=== PATIENT | male | born 1995 | race Caucasian/White ===

== ENCOUNTER → 2020-01-07 | Outpatient (CLI) | payer MEDICARE ==
--- NOTE | 2020-01-07 12:17 | Diagnostic Imaging Report ---
INDICATION: Wheezing. COMPARISON: None available. TECHNIQUE: Frontal and lateral radiographs of the chest dated 01/07/2020. FINDINGS: Postsurgical changes of a median sternotomy are identified. Additional densities are identified overlying the right aspect of the heart, likely related to a Closure device. The superior aspect of the mediastinum is narrowed with the heart demonstrating a slight globular configuration. No pulmonary vascular congestion. The lungs are clear of focal pulmonary opacity. No pleural effusion. No pneumothorax. No acute osseous abnormality. Mild narrowing of the inferior aspect of the trachea is suggested. IMPRESSION: Mild narrowing of the inferior aspect of the trachea is suggested, of uncertain etiology. This could relate to scarring and stenosis. Alternatively, secretions or mass lesion would be an additional consideration. Comparison to prior imaging would be beneficial. Postsurgical changes associated with the chest with abnormal configuration of the heart and mediastinum. Findings are felt to relate to underlying congenital heart disease. Given appearance of the mediastinum, this could relate to transposition of the great arteries. Recommend clinical correlation and correlation with surgical history. Comparison to prior imaging would also be beneficial. Dictated by: Dictated on workstation # [id number]
== END ==
LOC: RAD FS 11:34
PROVIDERS: ATTEND Family Medicine
DX: R06.2 Wheezing (principal); Z98.890 Other specified postprocedural states
CPT/HCPCS: 71046

== ENCOUNTER 2020-06-24 20:22 | Emergency (ER) | payer MEDICARE ==
[~2020-06-24] VITALS: Ht 170.2 cm; Wt 59.0 kg
[~2020-06-24 20:22] MED LIST: ASPI-999 PO; CALC-823 PO; CEFD300C3 PO; CLC600T PO; DIGO125T3 PO; LISI-556 PO
[2020-06-24] MEDS ORDERED: ONDA4TAB11 PO (20:54)
--- NOTE | 2020-06-24 20:54 | ED Abdominal Pain ---
General Chief Complaint: Abdominal/GI Problems Stated Complaint: VOMITING,DIARRHEA Nursing Triage Note: PT AMBULATE TO ROOM FS02 WITH C/O N/V/D, ABD PAIN, AND HEADACHE STARTING THIS MORNING. PT DENIES TAKING ANYTHING FOR PAIN OR NAUSEA. Sepsis Screen: No Definite Risk Source of Information: Patient History of Present Illness Date Seen by Provider: Jun 24, 2020 Time Seen by Provider: 08:48 Initial Comments 24-year-old male presents with onset of nausea vomiting diarrhea this morning. Denies any significant abdominal pain, just "cramps all over". Denies any known exposure to anyone with stomach flu, however he states people at his work have had coughs and cold symptoms. Denies any chest pain, palpitations, cough or shortness of air. Has had very little to eat or drink today, but when he did try to eat a bowl of cereal he vomited immediately afterwards. Allergies and Home Medications Allergies Coded Allergies: Pertussis Vaccines (Verified Allergy, Unknown, 03/14/20) azithromycin (Verified Allergy, Unknown, 03/14/20) Home Medications Aspirin 81 Mg Tab.chew, 81 MG PO DAILY, (Reported) Calcium Carbonate 600 Mg Tablet, 600 MG PO DAILY, (Reported) Cefdinir 300 Mg Capsule, 300 MG PO BID Prescribed by: FELIX ALVAREZ on 03/16/20 1500 Digoxin 125 Mcg Tablet, 125 MCG PO DAILY, (Reported) LAST FILLED 11-25-2019 #3030 DAY SUPPLY Lisinopril 5 Mg Tablet, 5 MG PO DAILY, (Reported) LAST FILLED 01-07-2020 #30/30 DAY SUPPLY Ondansetron 4 Mg Tab.rapdis, 4 MG PO TID Prescribed by: SHAHANA DE LA ROSA on 06/24/202053 Patient Home Medication List Home Medication List Reviewed: Yes Review of Systems Review of Systems Constitutional: see HPI; No dizziness, No fever; malaise; No weakness EENTM: No Symptoms Reported Respiratory: No Symptoms Reported; Denies Cough, Denies Shortness of Air Cardiovascular: Denies Chest Pain, Denies Edema, Denies Palpitations Gastrointestinal: Denies Abdominal Pain, Denies Constipated; Diarrhea, Nausea, Poor Appetite, Poor Fluid Intake, Vomiting Genitourinary: No Symptoms Reported Musculoskeletal: no symptoms reported Skin: no symptoms reported Past Gviviaq-Bwcbnp-Vxohme Hx Past Med/Social Hx: Reviewed Nursing Past Med/Soc Hx Patient Social History Alcohol Use: Denies Use Recreational Drug Use: No Smoking Status: Never a Smoker 2nd Hand Smoke Exposure: No Recent Foreign Travel: No Contact w/Someone Who Travel: No Recent Infectious Disease Expo: No Recent Hopitalizations: No Physical Abuse: No Sexual Abuse: No Mistreated: No Fear: No Past Medical History Surgeries: Yes Abdominal, Open Heart Surgery, Tracheostomy Respiratory: No Cardiac: Yes (Congenital heart disease) Congenital Heart Disease Neurological: No Genitourinary: No Gastrointestinal: Yes (feeding tube when younger) Musculoskeletal: No Endocrine: No HEENT: No Cancer: No Psychosocial: Yes Anxiety Integumentary: No Blood Disorders: No Family Medical History Asthma, Heart Disease, CVA, Stroke Physical Exam Vital Signs Vital Signs - First Documented 06/24/20 20:38 Temp 36.3 Pulse 112 Resp 17 B/P (MAP) 128/77 (94) O2 Delivery Room Air Capillary Refill : Less Than 3 Seconds Height/Weight/BMI Height: '" Weight: lbs. oz. kg; 20.00 BMI Method: General Appearance: WD/WN, no apparent distress HEENT: PERRL/EOMI, normal ENT inspection Neck: non-tender, supple Respiratory: chest non-tender, lungs clear, normal breath sounds Cardiovascular: no edema, no gallop, no JVD, tachycardia (120) Gastrointestinal: non tender, soft, no organomegaly, abnormal bowel sounds (hyperactive); No mass Back: normal inspection, no CVA tenderness Progress/Results/Core Measures Results/Orders Lab Results Laboratory Tests Test 06/24/20 20:53 Range/Units White Blood Count 10.7 4.3-11.0 10^3/uL Red Blood Count 5.79 4.35-5.85 10^6/uL Hemoglobin 17.5 13.3-17.7 G/DL Hematocrit 52 40-54 % Mean Corpuscular Volume 89 80-99 FL Mean Corpuscular Hemoglobin 30 25-34 PG Mean Corpuscular Hemoglobin Concent 34 32-36 G/DL Red Cell Distribution Width 13.9 10.0-14.5 % Platelet Count 192 130-400 10^3/uL Mean Platelet Volume 11.0 H 7.4-10.4 FL Immature Granulocyte % (Auto) 1 % Neutrophils (%) (Auto) 86 H 42-75 % Lymphocytes (%) (Auto) 7 L 12-44 % Monocytes (%) (Auto) 6 0-12 % Eosinophils (%) (Auto) 0 0-10 % Basophils (%) (Auto) 1 0-10 % Neutrophils # (Auto) 9.1 H 1.8-7.8 X 10^3 Lymphocytes # (Auto) 0.7 L 1.0-4.0 X 10^3 Monocytes # (Auto) 0.7 0.0-1.0 X 10^3 Eosinophils # (Auto) 0.0 0.0-0.3 10^3/uL Basophils # (Auto) 0.1 0.0-0.1 10^3/uL Immature Granulocyte # (Auto) 0.1 0.0-0.1 10^3/uL Neutrophils % (Manual) 76 % Lymphocytes % (Manual) 5 % Monocytes % (Manual) 6 % Eosinophils % (Manual) 1 % Basophils % (Manual) 0 % Band Neutrophils 11 % Atypical Lymphocytes 1 % Platelet Estimate NORMAL Blood Morphology Comment NORMAL Sodium Level 139 135-145 MMOL/L Potassium Level 3.9 3.6-5.0 MMOL/L Chloride Level 101 98-107 MMOL/L Carbon Dioxide Level 22 21-32 MMOL/L Anion Gap 16 H 5-14 MMOL/L Blood Urea Nitrogen 7 7-18 MG/DL Creatinine 0.60 0.60-1.30 MG/DL Estimat Glomerular Filtration Rate > 60 BUN/Creatinine Ratio 12 Glucose Level 105 70-105 MG/DL Calcium Level 10.1 8.5-10.1 MG/DL My Orders Orders - SHAHANA DE LA ROSA DO Ed Iv/Invasive Line Start (06/24/20 20:49) Cbc With Automated Diff (06/24/20 20:49) Basic Metabolic Panel (06/24/20 20:49) Ns Iv 1000 Ml (Sodium Chloride 0.9%) (06/24/20 21:00) Ondansetron Injection (Zofran Injectio (06/24/20 21:00) Manual Differential (06/24/20 20:53) Medications Given in ED Current Medications Medications Dose Ordered Sig/Christen Route Start Time Stop Time Status Last Admin Dose Admin Ondansetron HCl 4 mg ONCE ONCE IVP 06/24/20 21:00 06/24/20 21:01 DC 06/24/20 20:58 4 MG Vital Signs/I&O 06/24/20 20:38 Temp 36.3 Pulse 112 Resp 17 B/P (MAP) 128/77 (94) O2 Delivery Room Air 2 Blood Pressure Mean: 94 Departure Impression Primary Impression: Gastroenteritis Disposition: 01 HOME, SELF-CARE Condition: Improved Departure-Patient Inst. Decision time for Depature: 21:49 Referrals: SELF,HA FERRELL (PCP/Family) Primary Care Physician Patient Instructions: Viral Gastroenteritis, Adult (DC) Scripts Ondansetron (Ondansetron Odt) 4 Mg Tab.rapdis 4 MG PO TID for Nausea, #10 TAB Prov: SHAHANA DE LA ROSA DO 06/24/20 SHAHANA DE LA ROSA DO Jun 24, 2020 20:54
[2020-06-24] MEDS ORDERED: ONDANSETRON 4 MG/2 ML (SDV) Z0FRAN IVP ONE (21:00)
[2020-06-24] MEDS ORDERED: NS IV 1000 ML 1,000 ML IV SCH (21:00)
[2020-06-24 21:14] LABS: BASOPHILS % (AUTO) 1 % (0-10); EOSINOPHILS % (AUTO) 0 % (0-10); HEMATOCRIT 52 % (40-54); HEMOGLOBIN 17.5 G/DL (13.3-17.7); LYMPHOCYTES % (AUTO) 7 % (12-44); MEAN CORPUSCULAR HEMOGLOBIN 30 PG (25-34); MEAN CORPUSCULAR HGB CONC 34 G/DL (32-36); MEAN CORPUSCULAR VOLUME 89 FL (80-99); MONOCYTES % (AUTO) 6 % (0-12); NEUTROPHILS % (AUTO) 86 % (42-75); PLATELET COUNT 192 10^3/uL (130-400); WHITE BLOOD COUNT 10.7 10^3/uL (4.3-11.0)
[2020-06-24 21:15] LABS: BASOPHILS # (AUTO) 0.1 10^3/uL (0.0-0.1); LYMPHOCYTES # (AUTO) 0.7 X 10^3 (1.0-4.0); MONOCYTES # (AUTO) 0.7 X 10^3 (0.0-1.0); NEUTROPHILS # (AUTO) 9.1 X 10^3 (1.8-7.8)
[2020-06-24 21:31] LABS: BAND NEUTROPHILS 11 %; BASOPHILS % (MANUAL) 0 %; EOSINOPHILS % (MANUAL) 1 %; LYMPHOCYTES % (MANUAL) 5 %; MONOCYTES % (MANUAL) 6 %; NEUTROPHILS % (MANUAL) 76 %
[2020-06-24 21:32] LABS: ATYPICAL LYMPHOCYTES 1 %; PLATELET ESTIMATE NORMAL; RBC MORPH NORMAL
[2020-06-24 21:33] LABS: BUN/CREATININE RATIO 12; CALCIUM 10.1 MG/DL (8.5-10.1); CARBON DIOXIDE 22 MMOL/L (21-32); CHLORIDE 101 MMOL/L (98-107); GFR ESTIMATED > 60; GLUCOSE 105 MG/DL (70-105); POTASSIUM 3.9 MMOL/L (3.6-5.0); SODIUM 139 MMOL/L (135-145)
[2020-06-24 22:12] VITALS: BP 119/64
== END 2020-06-24 22:12 | disposition home or self-care (01) ==
LOC: EDUNIT# 20:22 → ER FS 20:23
DX: K52.9 Noninfective gastroenteritis and colitis, unspecified (principal); Z82.49 Family history of ischemic heart disease and other diseases of the circulatory system; Z88.7 Allergy status to serum and vaccine; Z88.1 Allergy status to other antibiotic agents; Z79.82 Long term (current) use of aspirin
CPT/HCPCS: 36415; 80048; 85007; 85027

== ENCOUNTER 2021-07-08 02:18 | Emergency (ER) | payer MEDICARE ==
[~2021-07-08] VITALS: Ht 170 cm; Wt 59.0 kg
[~2021-07-08 02:18] MED LIST changes: +CALC600T91 PO; -CLC600T PO; -LISI-556 PO; +LISI5TAB20 PO; +ONDA4TAB11 PO
--- OUTSIDE RECORDS SUMMARY | 2021-07-08 02:24 | XMS REPORT | Clinical Summary ---
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 If you d o not see the information that you expected, contact Release of Information in [facility] [employer] Information Management department at [phone] for further assistan ce in locating additional records.[facility] Allergies Not on File Medications Not on file Active Problems Not on file Social History Date Tobacco Use Types Packs/Day Years Used Never Assessed Sex Assigned at Date Recorded Not on file Last Filed Vital Signs Not on file Plan of Treatment Health Maintenance Due Date Last Done Comments HIV SCREENING 2008 DTAP/TDAP VACCINES (1 - 2011 Tdap) HEPATITIS C SCREENING 2011 PHYSICAL (COMPREHENSIVE) 2011 EXAM INFLUENZA VACCINE 02/28/2021 HPV VACCINES Aged Out No longer eligible based on patient's age to complete this topic Results Not on filefrom Last 3 Months Advance Directives 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
[2021-07-08] MEDS ORDERED: ONDANSETRON 4 MG/2 ML (SDV) Z0FRAN IV ONE (02:45)
[2021-07-08] MEDS ORDERED: NS IV 1000 ML 1,000 ML IV SCH (02:45)
--- NOTE | 2021-07-08 02:50 | ED General ---
General Stated Complaint: SORE THROAT/VOMITING Source of Information: Patient, Old Records History of Present Illness Date Seen by Provider: Jul 08, 2021 Time Seen by Provider: 02:22 Initial Comments 25-year-old male presenting with complaints of sore throat, cough, nausea, vomiting, fever to 102 Fahrenheit. He states his symptoms all started last night. He was working at [employer] when his symptoms came on. He has been around his aunt who had similar symptoms. He had continued nausea and sore throat so when he could not rest at home because of the symptoms he came to the emergency department. He denies feeling dizzy or lightheaded. He has no chest pain. He reports mild epigastric tenderness with palpation. He denies any diarrhea or change in his bowels. He denies any pain or burning with urination. Timing/Duration: 4-6 Hours Severity: Moderate Associated Systoms: No Chest Pain; Cough; No Diaphoresis; Fever/Chills, Headaches, Malaise, Nausea/Vomiting; No Rash, No Seizure, No Shortness of Air, No Syncope, No Weakness Allergies and Home Medications Allergies Coded Allergies: Pertussis Vaccines (Verified Allergy, Unknown, 03/14/20) azithromycin (Verified Allergy, Unknown, 03/14/20) Patient Home Medication List Home Medication List Reviewed: Yes Aspirin (Aspirin) 81 Mg Tab.chew, 81 MG PO DAILY, (Reported) Entered as Reported by: OZZY JONES on 03/15/20918 Calcium Carbonate (Calcium) 600 Mg Tablet, 600 MG PO DAILY, (Reported) Entered as Reported by: BRANDEE LEE on 03/16/20 1155 Digoxin (Digoxin) 125 Mcg Tablet, 125 MCG PO DAILY, (Reported) Entered as Reported by: OZZY JONES on 03/15/20918 Lisinopril (Lisinopril) 5 Mg Tablet, 5 MG PO DAILY, (Reported) Entered as Reported by: OZZY JONES on 03/15/20918 Ondansetron (Ondansetron Odt) 4 Mg Tab.rapdis, 4 MG PO Q6H PRN for NAUSEA/VOMITING Prescribed by: MATT CRAMER on 07/08/21 0451 Discontinued Medications Cefdinir (Cefdinir) 300 Mg Capsule, 300 MG PO BID Prescribed by: FELIX ALVAREZ on 03/16/20 1500 Ondansetron (Ondansetron Odt) 4 Mg Tab.rapdis, 4 MG PO TID Prescribed by: SHAHANA DE LA ROSA on 06/24/202053 Review of Systems Review of Systems Constitutional: chills; No diaphoresis, No dizziness; fever, malaise EENTM: nose congestion, throat pain (Sore throat) Respiratory: cough, short of breath; No stridor, No wheezing Cardiovascular: No chest pain Gastrointestinal: abdominal pain (Epigastric); No constipation, No diarrhea, No hematemesis, No heartburn, No melena; nausea, vomiting Genitourinary: No decreased output, No dysuria Musculoskeletal: no symptoms reported Skin: No rash Psychiatric/Neurological: See HPI Past Ejskrwq-Maoyjd-Ydjcda Hx Patient Social History Tobacco Use?: No Use of E-Cig and/or Vaping dev: No Substance use?: No Alcohol Use?: No Past Medical History Surgeries: Yes Abdominal, Open Heart Surgery, Tracheostomy Respiratory: No Cardiac: Yes (Congenital heart disease) Congenital Heart Disease Neurological: No Genitourinary: No Gastrointestinal: Yes (feeding tube when younger) Musculoskeletal: No Endocrine: No HEENT: No Cancer: No Psychosocial: Yes Anxiety Integumentary: No Blood Disorders: No Family Medical History Asthma, Heart Disease, CVA, Stroke Physical Exam Vital Signs Vital Signs - First Documented Capillary Refill : Height, Weight, BMI Height: '" Weight: lbs. oz. kg; 20.00 BMI Method: General Appearance: No Apparent Distress, Thin, Other (Disheveled appearance) HEENT: PERRL/EOMI, Pharynx Normal Neck: Full Range of Motion, Normal Inspection, Non Tender, Supple Respiratory: Chest Non Tender, Lungs Clear, Normal Breath Sounds, No Accessory Muscle Use, No Respiratory Distress Cardiovascular: Normal Peripheral Pulses, Tachycardia Gastrointestinal: Normal Bowel Sounds, No Pulsatile Mass, Soft; No Abnormal Bowel Sounds, No Guarding, No Rebound; Tenderness (Mild epigastric tenderness to palpation) Rectal: Deferred Back: No CVA Tenderness Extremity: Normal Capillary Refill, Normal Inspection, No Pedal Edema Neurologic/Psychiatric: Alert, Oriented x3, structurer II-XII Norm as Tested Skin: Normal Color, Warm/Dry Focused Exam Lactate Level 07/08/21 03:15: Lactic Acid Level 1.26 Lactic Acid Level Laboratory Tests Test 07/08/21 03:15 Lactic Acid Level 1.26 MMOL/L (0.50-2.00) Progress/Results/Core Measures Suspected Sepsis SIRS Temperature: Pulse: Respiratory Rate: Laboratory Tests 07/08/21 03:15: White Blood Count 9.5 Blood Pressure / Mean: 07/08/21 03:15: Lactic Acid Level 1.26 Laboratory Tests 07/08/21 03:15: Creatinine 0.81, INR Comment 1.2, Platelet Count 160, Total Bilirubin 2.9H Results/Orders Lab Results Laboratory Tests Test 07/08/21 03:15 07/08/21 03:20 07/08/21 03:25 07/08/21 03:56 Range/Units White Blood Count 9.5 4.3-11.0 10^3/uL Red Blood Count 5.65 H 4.30-5.52 10^6/uL Hemoglobin 17.3 13.3-17.7 g/dL Hematocrit 50 40-54 % Mean Corpuscular Volume 88 80-99 fL Mean Corpuscular Hemoglobin 31 25-34 pg Mean Corpuscular Hemoglobin Concent 35 32-36 g/dL Red Cell Distribution Width 13.9 10.0-14.5 % Platelet Count 160 130-400 10^3/uL Mean Platelet Volume 11.5 9.0-12.2 fL Immature Granulocyte % (Auto) % Neutrophils (%) (Auto) 85 H 42-75 % Lymphocytes (%) (Auto) 5 L 12-44 % Monocytes (%) (Auto) 9 0-12 % Eosinophils (%) (Auto) 0 0-10 % Basophils (%) (Auto) 1 0-10 % Neutrophils # (Auto) 8.1 H 1.8-7.8 X 10^3 Lymphocytes # (Auto) 0.5 L 1.0-4.0 X 10^3 Monocytes # (Auto) 0.9 0.0-1.0 X 10^3 Eosinophils # (Auto) 0.0 0.0-0.3 10^3/uL Basophils # (Auto) 0.1 0.0-0.1 10^3/uL Neutrophils % (Manual) 82 % Lymphocytes % (Manual) 4 % Monocytes % (Manual) 7 % Eosinophils % (Manual) 0 % Basophils % (Manual) 1 % Band Neutrophils 6 % Platelet Estimate NORMAL Blood Morphology Comment NORMAL Prothrombin Time 15.4 H 12.2-14.7 SEC INR Comment 1.2 0.8-1.4 Activated Partial Thromboplast Time 32 24-35 SEC Sodium Level 137 135-145 MMOL/L Potassium Level 3.8 3.6-5.0 MMOL/L Chloride Level 102 98-107 MMOL/L Carbon Dioxide Level 21 21-32 MMOL/L Anion Gap 14 5-14 MMOL/L Blood Urea Nitrogen 8 7-18 MG/DL Creatinine 0.81 0.60-1.30 MG/DL Estimat Glomerular Filtration Rate 114 BUN/Creatinine Ratio 10 Glucose Level 106 H 70-105 MG/DL Lactic Acid Level 1.26 0.50-2.00 MMOL/L Calcium Level 9.6 8.5-10.1 MG/DL Corrected Calcium 8.5-10.1 MG/DL Total Bilirubin 2.9 H 0.1-1.0 MG/DL Aspartate Amino Transf (AST/SGOT) 25 5-34 U/L Alanine Aminotransferase (ALT/SGPT) 23 0-55 U/L Alkaline Phosphatase 83 40-136 U/L Troponin I < 0.30 <0.30 NG/ML C-Reactive Protein 0.56 H <0.50 MG/DL Total Protein 7.7 6.4-8.2 GM/DL Albumin 4.8 H 3.2-4.5 GM/DL Lipase 12 8-78 U/L Influenza Type A Antigen NEGATIVE NEGATIVE Influenza Type B Antigen NEGATIVE NEGATIVE Group A Streptococcus Screen NEGATIVE NEGATIVE Test 07/08/21 04:30 Range/Units Urine Color DARK YELLOW Urine Clarity CLEAR Urine pH 8.5 5-9 Urine Specific [place] 1.015 L 1.016-1.022 Urine Protein NEGATIVE NEGATIVE Urine Glucose (UA) NEGATIVE NEGATIVE Urine Ketones 1+ H NEGATIVE Urine Nitrite NEGATIVE NEGATIVE Urine Bilirubin 1+ H NEGATIVE Urine Urobilinogen 4.0 < = 1.0 MG/DL Urine Leukocyte Esterase NEGATIVE NEGATIVE Urine RBC (Auto) NEGATIVE NEGATIVE Urine RBC 2-5 H /HPF Urine WBC RARE /HPF Urine Squamous Epithelial Cells RARE /HPF Urine Crystals NONE /LPF Urine Bacteria NEGATIVE /HPF Urine Casts NONE /LPF Urine Mucus SMALL H /LPF Urine Culture Indicated NO My Orders Orders - MATT CRAMER MD Ed Iv/Invasive Line Start (07/08/21 02:40) Cbc With Automated Diff (07/08/21 02:40) Comprehensive Metabolic Panel (07/08/21 02:40) Crp Fs (07/08/21 02:40) Troponin I Fs (07/08/21 02:40) Protime With Inr (07/08/21 02:40) Partial Thromboplastin Time (07/08/21 02:40) Ns Iv 1000 Ml (Sodium Chloride 0.9%) (07/08/21 02:45) Ondansetron Injection (Zofran Injectio (07/08/21 02:45) Blood Culture (07/08/21 02:40) Rapid Strep A Screen (07/08/21 02:40) Influenza A & B Antigens (07/08/21 02:40) Covid 19 Inhouse Test (07/08/21 02:40) Chest 1 View Ap/Pa Only (07/08/21 02:40) Lipase (07/08/21 02:40) Ua Culture If Indicated (07/08/21 02:40) Lactic Acid Analyzer (07/08/21 02:40) Dexamethasone Injection (Decadron Inje (07/08/21 02:40) Manual Differential (07/08/21 03:15) Medications Given in ED Current Medications Medications Dose Ordered Sig/Christen Route Start Time Stop Time Status Last Admin Dose Admin Ondansetron HCl 4 mg ONCE ONCE IV 07/08/21 02:45 07/08/21 02:46 DC 07/08/21 03:22 4 MG Vital Signs/I&O 07/08/21 07/08/21 02:30 02:30 Temp 37.5 37.5 Pulse 112 112 Resp 14 14 B/P (MAP) 130/71 (90) 130/71 Pulse Ox 96 94 O2 Delivery Room Air Room Air Capillary Refill : Progress Note #1: Progress Note Obtain basic labs as well as blood cultures since he reports fever of 102 Fahrenheit. Rapid strep swab for his complaint of sore throat. Influenza and Covid swab to check for viral infection. Chest x-ray to evaluate for his cough and look for signs of pneumonia, pleural effusion, heart failure, pneumothorax. Urinalysis to evaluate hydration. Give IV fluids for hydration. Zofran for nausea and vomiting. Decadron to help with sore throat and cough. Differential diagnosis includes viral syndrome, strep throat, influenza, Covid, pneumonia, sepsis Progress Note #2: Progress Note CBC did not demonstrate an elevated white blood cell count. His rapid strep test was negative. The chest x-ray did not demonstrate any acute infiltrate or effusion. Awaiting other tests. Continue with IV fluids for hydration and continue with monitoring of the patient. Progress Note #3: Progress Note Influenza swab was negative. The chemistry did not demonstrate any acute significant abnormality. His lactic acid was not elevated. Will discharge home with symptomatic care and await Covid result. Counseled to isolate and quarantine until results are back. If he is positive he should stay in isolation and quarantine for 10 days until his symptoms are resolved. Diagnostic Imaging Diagonstic Imaging: Xray Plain Films/CT/US/NM/MRI: chest Comments NAME: AUDIE REINA [facility] REC#: [id number] PT STATUS: REG ER : 1995 PHYSICIAN: MATT CRAMER MD ADMIT DATE: 07/08/21/ER FS Draft Date of Exam:07/08/21 CHEST 1 VIEW AP/PA ONLY INDICATION: Cough and fever Portable AP view of the chest is obtained with comparison made to the study of 03/14/2020. Surgical findings in the mediastinum again identified. There is mild cardiomegaly with narrow superior mediastinum. No pneumothorax, consolidation or pleural fluid is identified. IMPRESSION: Stable appearance of the chest without acute abnormality detected. Dictated on workstation # [id number] Dict: 07/08/21 0411 Trans: 07/08/21 0413 [facility] [id number] Interpreted by: SULEMA MIRELES MD Electronically signed by: Reviewed: Reviewed by Me Departure Impression Primary Impression: Upper respiratory infection with cough and congestion Additional Impression: Person under investigation for COVID-19 Disposition: 01 HOME, SELF-CARE Condition: Stable Departure-Patient Inst. Decision time for Depature: 04:49 Referrals: HA CARY MD (PCP/Family) Primary Care Physician Patient Instructions: COVID-19 After You Have Been Vaccinated, Upper Respiratory Infection ED, Cough, Adult ED Add. Discharge Instructions: Stay well-hydrated and drink plenty of fluids. Use a humidifier at the bedside to help with congestion and cough. Quarantine and self isolate until the results of the Covid swab are known. This could take 24 hours or more to get back. If the test result is positive then you need to remain in quarantine for 10 days. Follow-up through your regular provider for continued concerns. Scripts Ondansetron (Ondansetron Odt) 4 Mg Tab.rapdis 4 MG PO Q6H PRN for NAUSEA/VOMITING for 3 Days, #12 TAB 0 Refills Prov: MATT CRAMER MD 07/08/21 Work/School Note: Work Release Form Date Seen in the Emergency Department: Jul 08, 2021 Return to Work: Jul 19, 2021 Restrictions: Return-No Fever (24hrs) Other Restrictions Listed Below: Return to work if Covid positive. If negative, when no fever 24 hrs MATT CRAMER MD Jul 08, 2021 02:50
[2021-07-08 04:13] LABS: INR 1.2 (0.8-1.4); PROTHROMBIN TIME PATIENT 15.4 SEC (12.2-14.7)
--- NOTE | 2021-07-08 04:14 | Diagnostic Imaging Report ---
INDICATION: Cough and fever Portable AP view of the chest is obtained with comparison made to the study of 03/14/2020. Surgical findings in the mediastinum again identified. There is mild cardiomegaly with narrow superior mediastinum. No pneumothorax, consolidation or pleural fluid is identified. IMPRESSION: Stable appearance of the chest without acute abnormality detected. Dictated by: Dictated on workstation # [id number]
[2021-07-08 04:17] LABS: BASOPHILS % (AUTO) 1 % (0-10); EOSINOPHILS % (AUTO) 0 % (0-10); HEMATOCRIT 50 % (40-54); HEMOGLOBIN 17.3 g/dL (13.3-17.7); LYMPHOCYTES # (AUTO) 0.5 X 10^3 (1.0-4.0); LYMPHOCYTES % (AUTO) 5 % (12-44); MEAN CORPUSCULAR HEMOGLOBIN 31 pg (25-34); MEAN CORPUSCULAR HGB CONC 35 g/dL (32-36); MEAN CORPUSCULAR VOLUME 88 fL (80-99); MEAN PLATELET VOLUME 11.5 fL (9.0-12.2); MONOCYTES # (AUTO) 0.9 X 10^3 (0.0-1.0); MONOCYTES % (AUTO) 9 % (0-12); NEUTROPHILS # (AUTO) 8.1 X 10^3 (1.8-7.8); NEUTROPHILS % (AUTO) 85 % (42-75); PLATELET COUNT 160 10^3/uL (130-400); WHITE BLOOD COUNT 9.5 10^3/uL (4.3-11.0)
[2021-07-08 04:18] LABS: BASOPHILS # (AUTO) 0.1 10^3/uL (0.0-0.1)
[2021-07-08 04:19] LABS: CARBON DIOXIDE 21 MMOL/L (21-32); CHLORIDE 102 MMOL/L (98-107); POTASSIUM 3.8 MMOL/L (3.6-5.0); SODIUM 137 MMOL/L (135-145)
[2021-07-08 04:20] LABS: ALANINE AMINOTRANSFERASE 23 U/L (0-55); ALBUMIN 4.8 GM/DL (3.2-4.5); ALKALINE PHOSPHATASE 83 U/L (40-136); BILIRUBIN,TOTAL 2.9 MG/DL (0.1-1.0); BUN/CREATININE RATIO 10; CALCIUM 9.6 MG/DL (8.5-10.1); CREATININE SERUM 0.81 MG/DL (0.60-1.30); GFR ESTIMATED 114; GLUCOSE 106 MG/DL (70-105); TOTAL PROTEIN 7.7 GM/DL (6.4-8.2)
[2021-07-08 04:26] LABS: BAND NEUTROPHILS 6 %; BASOPHILS % (MANUAL) 1 %; EOSINOPHILS % (MANUAL) 0 %; LYMPHOCYTES % (MANUAL) 4 %; MONOCYTES % (MANUAL) 7 %; NEUTROPHILS % (MANUAL) 82 %
[2021-07-08 04:27] LABS: PLATELET ESTIMATE NORMAL; RBC MORPH NORMAL
[2021-07-08 04:34] LABS: CLARITY,URINE CLEAR; GLUCOSE, URINE (UA) NEGATIVE (NEGATIVE); KETONES,URINE 1+ (NEGATIVE); LEUKOCYTE ESTERASE ,URINE NEGATIVE (NEGATIVE); NITRITE,URINE NEGATIVE (NEGATIVE); PH,URINE 8.5 (5-9); PROTEIN,URINE NEGATIVE (NEGATIVE)
[2021-07-08 04:42] LABS: BACTERIA,URINE NEGATIVE /HPF; BILIRUBIN,URINE 1+ (NEGATIVE); COLOR,URINE DARK YELLOW; WBC,URINE RARE /HPF
[2021-07-08 04:43] LABS: SQUAMOUS EPITHELIAL CELL,UR RARE /HPF
[2021-07-08] MEDS ORDERED: ONDA4TAB11 PO (04:51)
[2021-07-08 05:00] VITALS: BP 116/56
== END 2021-07-08 05:00 | disposition home or self-care (01) ==
LOC: EDUNIT# 02:18 → ER FS 02:21
DX: J06.9 Acute upper respiratory infection, unspecified (principal); R09.81 Nasal congestion; R00.0 Tachycardia, unspecified; Z20.822 Contact with and (suspected) exposure to COVID-19; Z79.82 Long term (current) use of aspirin
CPT/HCPCS: 36415; 71045; 80053; 81000; 83605; 83690; 84484; 85007; 85027; 85610; 85730; 86141; 87040; 87430; 87636; 87804

== ENCOUNTER 2022-07-01 05:29 | Emergency (ER) | payer MEDICARE ==
[~2022-07-01] VITALS: Ht 170.1 cm; Wt 57.7 kg
--- NOTE | 2022-07-01 05:33 | ED Cough/URI ---
General Stated Complaint: COUGH, CONGESTION History of Present Illness Date Seen by Provider: Jul 01, 2022 Time Seen by Provider: 05:33 Initial Comments 26-year-old male presents with a cough times about 5 days. [facility] was [facility] negative for influenza, strep and COVID. Patient has a history of 3 open heart surgeries and is a baby along with a trach. Patient reports she has been trying Tessalon Perles with a continues to have a cough and congestion. He does have a niece with similar illness. No reports of fevers, chills, vomiting or diarrhea. Allergies and Home Medications Allergies Coded Allergies: Pertussis Vaccines (Verified Allergy, Unknown, 03/14/20) azithromycin (Verified Allergy, Unknown, 03/14/20) Patient Home Medication List Home Medication List Reviewed: Yes Aspirin (Aspirin) 81 Mg Tab.chew, 81 MG PO DAILY, (Reported) Entered as Reported by: OZZY JONES on 03/15/20918 Last Action: Last Taken Edited Benzonatate (Benzonatate) 100 Mg Capsule, 100 MG PO TID PRN for COUGH, (Reported) Entered as Reported by: JOSE D ALDRIDGE on 07/01/22 0635 Last Action: New Order Calcium Carbonate (Calcium) 600 Mg Tablet, 600 MG PO DAILY, (Reported) Entered as Reported by: BRANDEE LEE on 03/16/20 1155 Last Action: Last Taken Edited Digoxin (Digoxin) 125 Mcg Tablet, 125 MCG PO DAILY, (Reported) Entered as Reported by: OZZY JONES on 03/15/20918 Last Action: Last Taken Edited Lisinopril (Lisinopril) 5 Mg Tablet, 5 MG PO DAILY, (Reported) Entered as Reported by: OZZY JONES on 03/15/20918 Last Action: Last Taken Edited Discontinued Medications Ondansetron (Ondansetron Odt) 4 Mg Tab.rapdis, 4 MG PO Q6H PRN for NAUSEA/VOMITING Discontinued Reason: Referral/FU Appt-Addtl Prescribed by: MATT CRAMER on 07/08/21 0114 Last Action: Discontinued Review of Systems Review of Systems Constitutional: No chills, No fever; malaise Respiratory: cough; No wheezing Cardiovascular: No chest pain, No palpitations Gastrointestinal: No abdominal pain, No nausea, No vomiting Musculoskeletal: no symptoms reported Skin: no symptoms reported Psychiatric/Neurological: No Symptoms Reported Past Nkyjlwr-Qcvjjk-Labank Hx Past Medical History Surgeries: Yes Abdominal, Open Heart Surgery, Tracheostomy Respiratory: No Cardiac: Yes (Congenital heart disease) Congenital Heart Disease Neurological: No Genitourinary: No Gastrointestinal: Yes (feeding tube when younger) Musculoskeletal: No Endocrine: No HEENT: No Cancer: No Psychosocial: Yes Anxiety Integumentary: No Blood Disorders: No Family Medical History Asthma, Heart Disease, CVA, Stroke Physical Exam Vital Signs - First Documented 07/01/22 05:34 Temp 36.4 Pulse 94 Resp 20 B/P (MAP) 128/67 (87) Pulse Ox 96 O2 Delivery Room Air Capillary Refill : Height: '" Weight: lbs. oz. kg; 20.00 BMI Method: General Appearance: WD/WN, no apparent distress Neck: full range of motion, supple, normal inspection Respiratory: lungs clear, normal breath sounds, no respiratory distress, no accessory muscle use, other (Frequent cough) Cardiovascular: regular rate, rhythm, no edema Gastrointestinal: non tender, soft Neurologic/Psychiatric: alert, normal mood/affect, oriented x 3 Skin: normal color, warm/dry Progress/Results/Core Measures Suspected Sepsis SIRS Temperature: Pulse: Respiratory Rate: Laboratory Tests 07/01/22 05:50: White Blood Count 10.0 Blood Pressure / Mean: Laboratory Tests 07/01/22 05:50: Creatinine 0.66, Platelet Count 177, Total Bilirubin 1.3H Results/Orders Lab Results Laboratory Tests Test 07/01/22 05:50 Range/Units White Blood Count 10.0 4.3-11.0 10^3/uL Red Blood Count 5.09 4.30-5.52 10^6/uL Hemoglobin 15.6 13.3-17.7 g/dL Hematocrit 45 40-54 % Mean Corpuscular Volume 88 80-99 fL Mean Corpuscular Hemoglobin 31 25-34 pg Mean Corpuscular Hemoglobin Concent 35 32-36 g/dL Red Cell Distribution Width 13.6 10.0-14.5 % Platelet Count 177 130-400 10^3/uL Mean Platelet Volume 11.3 9.0-12.2 fL Immature Granulocyte % (Auto) 0 % Neutrophils (%) (Auto) 74 42-75 % Lymphocytes (%) (Auto) 13 12-44 % Monocytes (%) (Auto) 10 0-12 % Eosinophils (%) (Auto) 3 0-10 % Basophils (%) (Auto) 1 0-10 % Neutrophils # (Auto) 7.5 1.8-7.8 10^3/uL Lymphocytes # (Auto) 1.3 1.0-4.0 10^3/uL Monocytes # (Auto) 1.0 0.0-1.0 10^3/uL Eosinophils # (Auto) 0.3 0.0-0.3 10^3/uL Basophils # (Auto) 0.1 0.0-0.1 10^3/uL Immature Granulocyte # (Auto) 0.0 0.0-0.1 10^3/uL Sodium Level 143 135-145 MMOL/L Potassium Level 3.3 L 3.6-5.0 MMOL/L Chloride Level 103 98-107 MMOL/L Carbon Dioxide Level 23 21-32 MMOL/L Anion Gap 17 H 5-14 MMOL/L Blood Urea Nitrogen 6 L 7-18 MG/DL Creatinine 0.66 0.60-1.30 MG/DL Estimat Glomerular Filtration Rate 131 BUN/Creatinine Ratio 9 Glucose Level 96 70-105 MG/DL Calcium Level 9.2 8.5-10.1 MG/DL Corrected Calcium 8.8 8.5-10.1 MG/DL Total Bilirubin 1.3 H 0.1-1.0 MG/DL Aspartate Amino Transf (AST/SGOT) 19 5-34 U/L Alanine Aminotransferase (ALT/SGPT) 13 0-55 U/L Alkaline Phosphatase 90 40-136 U/L C-Reactive Protein 2.23 H <0.50 MG/DL Total Protein 7.4 6.4-8.2 GM/DL Albumin 4.5 3.2-4.5 GM/DL My Orders Orders - MARTIN,TAYE L DO Cbc With Automated Diff (07/01/22 05:36) Comprehensive Metabolic Panel (07/01/22 05:36) Procalcitonin (Pct) (07/01/22 05:36) Crp Fs (07/01/22 05:36) Chest Pa/Lat (2 View) (07/01/22 05:36) Vital Signs/I&O 07/01/22 05:34 Temp 36.4 Pulse 94 Resp 20 B/P (MAP) 128/67 (87) Pulse Ox 96 O2 Delivery Room Air Capillary Refill : Progress Note : Progress Note Patient with negative chest x-ray. Patient with a viral upper respiratory infection. Discussed supportive care. Patient stable and discharged home Diagnostic Imaging Diagonstic Imaging: Xray Plain Films/CT/US/NM/MRI: chest Comments Date of Exam:07/01/22 CHEST PA/LAT (2 VIEW) CHEST PA/LAT (2 VIEW) Indication: Cough Comparison: 07/08/2021 Findings: No pulmonary mass or consolidation. No pleural effusion or pneumothorax. Stable widened configuration of the cardiac silhouette, likely due to congenital heart disease, especially in the setting of remote sternotomy. Impression: No acute cardiopulmonary process. Reviewed: Reviewed by Me, Reviewed/Discussed Departure Impression Primary Impression: Viral upper respiratory tract infection with cough Disposition: 01 HOME, SELF-CARE Condition: Stable Departure-Patient Inst. Referrals: SELF,HA FERRELL (PCP/Family) Primary Care Physician Patient Instructions: Cough, Adult ED Add. Discharge Instructions: You may try honey in addition to your Tessalon Perles for your cough. Tylenol or ibuprofen as needed for fever and chills. Follow-up with your primary care provider if symptoms are not better in 10 to 14 days. Work/School Note: Work Release Form Date Seen in the Emergency Department: Jul 01, 2022 Return to Work: Jul 03, 2022 Restrictions: Return-No Fever (24hrs) TAYE MARTIN DO Jul 01, 2022 05:33
[2022-07-01 05:58] LABS: BASOPHILS # (AUTO) 0.1 10^3/uL (0.0-0.1); BASOPHILS % (AUTO) 1 % (0-10); EOSINOPHILS # (AUTO) 0.3 10^3/uL (0.0-0.3); EOSINOPHILS % (AUTO) 3 % (0-10); HEMATOCRIT 45 % (40-54); HEMOGLOBIN 15.6 g/dL (13.3-17.7); LYMPHOCYTES # (AUTO) 1.3 10^3/uL (1.0-4.0); LYMPHOCYTES % (AUTO) 13 % (12-44); MEAN CORPUSCULAR HEMOGLOBIN 31 pg (25-34); MEAN CORPUSCULAR HGB CONC 35 g/dL (32-36); MEAN CORPUSCULAR VOLUME 88 fL (80-99); MEAN PLATELET VOLUME 11.3 fL (9.0-12.2); MONOCYTES % (AUTO) 10 % (0-12); NEUTROPHILS # (AUTO) 7.5 10^3/uL (1.8-7.8); NEUTROPHILS % (AUTO) 74 % (42-75); PLATELET COUNT 177 10^3/uL (130-400)
--- NOTE | 2022-07-01 06:07 | Diagnostic Imaging Report ---
CHEST PA/LAT (2 VIEW) Indication: Cough Comparison: 07/08/2021 Findings: No pulmonary mass or consolidation. No pleural effusion or pneumothorax. Stable widened configuration of the cardiac silhouette, likely due to congenital heart disease, especially in the setting of remote sternotomy. Impression: No acute cardiopulmonary process. Dictated by: Dictated on workstation # [id number]
[2022-07-01 06:21] LABS: ALBUMIN 4.5 GM/DL (3.2-4.5); BILIRUBIN,TOTAL 1.3 MG/DL (0.1-1.0); CALCIUM 9.2 MG/DL (8.5-10.1); CREATININE SERUM 0.66 MG/DL (0.60-1.30); POTASSIUM 3.3 MMOL/L (3.6-5.0); TOTAL PROTEIN 7.4 GM/DL (6.4-8.2)
[2022-07-01] MEDS ORDERED: BENZ-36 PO (06:35)
[2022-07-01 06:55] VITALS: BP 124/60
== END 2022-07-01 06:51 | disposition home or self-care (01) ==
LOC: EDUNIT# 05:29 → ER FS 05:31
DX: J06.9 Acute upper respiratory infection, unspecified (principal)
CPT/HCPCS: 36415; 71046; 80053; 84145; 85025; 86141

== ENCOUNTER 2022-07-16 01:56 | Emergency (ER) | payer SELFPAY ==
[~2022-07-16 01:56] MED LIST changes: +BENZ-36 PO
[2022-07-16] MEDS ORDERED: ONDANSETRON 4 MG (ZOFRAN) ORAL DISSOLVE TAB PO STA (02:09)
[2022-07-16] MEDS ORDERED: BENZONATATE 100 MG (TESSALON) CAPSULE PO ONE (02:15)
--- NOTE | 2022-07-16 02:15 | ED Cough/URI ---
General Chief Complaint: Cough/Cold/Flu Symptoms Stated Complaint: DIZZINESS/N/V History of Present Illness Date Seen by Provider: Jul 16, 2022 Time Seen by Provider: 02:00 Initial Comments 26-year-old male presents with some nausea, vomiting, dizziness, cough, body aches, subjective fever and generalized malaise. Patient reports he has had a cough for about a week but the other symptoms just started over the last day or so. His and at recently tested positive for influenza and he has been around her a lot. She has the same symptoms. Allergies and Home Medications Allergies Coded Allergies: Pertussis Vaccines (Verified Allergy, Unknown, 03/14/20) azithromycin (Verified Allergy, Unknown, 03/14/20) Patient Home Medication List Home Medication List Reviewed: Yes Aspirin (Aspirin) 81 Mg Tab.chew, 81 MG PO DAILY, (Reported) Entered as Reported by: OZZY JONES on 03/15/20918 Benzonatate (Benzonatate) 100 Mg Capsule, 100 MG PO TID PRN for COUGH, (Reported) Entered as Reported by: JOSE D ALDRIDGE on 07/01/22 0635 Calcium Carbonate (Calcium) 600 Mg Tablet, 600 MG PO DAILY, (Reported) Entered as Reported by: BRANDEE LEE on 03/16/20 1155 Digoxin (Digoxin) 125 Mcg Tablet, 125 MCG PO DAILY, (Reported) Entered as Reported by: OZZY JONES on 03/15/20918 Lisinopril (Lisinopril) 5 Mg Tablet, 5 MG PO DAILY, (Reported) Entered as Reported by: OZZY JONES on 03/15/20918 Review of Systems Review of Systems Constitutional: chills, dizziness, fever Respiratory: cough; No short of breath Cardiovascular: No chest pain, No palpitations Gastrointestinal: No abdominal pain; nausea, vomiting Genitourinary: no symptoms reported Musculoskeletal: see HPI Skin: no symptoms reported Psychiatric/Neurological: No Symptoms Reported Past Wvvmxhr-Jwqvro-Oliygn Hx Patient Social History Tobacco Use?: No Use of E-Cig and/or Vaping dev: No Substance use?: No Immunizations Up To Date First/Initial COVID19 Vaccinat: unknown date Second COVID19 Vaccination Francisco: unknown date Past Medical History Surgery/Hospitalization HX: Congenital heart defect, open heart surgery repairs x3 Surgeries: Yes Abdominal, Open Heart Surgery, Tracheostomy Respiratory: No Cardiac: Yes (Congenital heart disease) Congenital Heart Disease Neurological: No Genitourinary: No Gastrointestinal: Yes (feeding tube when younger) Musculoskeletal: No Endocrine: No HEENT: No Cancer: No Psychosocial: Yes Anxiety Integumentary: No Blood Disorders: No Family Medical History Asthma, Heart Disease, CVA, Stroke Physical Exam Vital Signs - First Documented 07/16/22 02:03 Temp 38.4 Pulse 113 Resp 20 B/P (MAP) 99/73 (82) Pulse Ox 96 O2 Delivery Room Air Capillary Refill : Height: '" Weight: lbs. oz. kg; 19.00 BMI Method: General Appearance: WD/WN, no apparent distress HEENT: PERRL/EOMI Neck: full range of motion, supple Respiratory: lungs clear, normal breath sounds, no respiratory distress, no accessory muscle use Cardiovascular: normal peripheral pulses, regular rate, rhythm Gastrointestinal: non tender, soft Extremities: normal capillary refill Neurologic/Psychiatric: alert, normal mood/affect, oriented x 3 Skin: No rash, No tattoos/piercings Progress/Results/Core Measures Suspected Sepsis SIRS Temperature: Pulse: Respiratory Rate: Blood Pressure / Mean: Results/Orders My Orders Orders - TAYE MARTIN DO Ondansetron Oral Dissolve Tab (Zofran (07/16/22 02:09) Benzonatate Capsule (Tessalon Perles) (07/16/22 02:15) Medications Given in ED Current Medications Medications Dose Ordered Sig/Christen Route Start Time Stop Time Status Last Admin Dose Admin Benzonatate 100 mg ONCE ONCE PO 07/16/22 02:15 07/16/22 02:16 07/16/22 02:14 100 MG Vital Signs/I&O 07/16/22 02:03 Temp 38.4 Pulse 113 Resp 20 B/P (MAP) 99/73 (82) Pulse Ox 96 O2 Delivery Room Air Capillary Refill : Progress Note : Progress Note Patient with likely influenza since his aunt that he lives with and takes him to work has similar symptoms. Discussed with him that he is outside treatment window since his symptoms seem to start more than 48 hours ago. I will provide him Zofran to help with the nausea vomiting. He should drink plenty of fluids get plenty rest. He is stable and discharged Departure Impression Primary Impression: Influenza-like symptoms Disposition: HOME, SELF-CARE Condition: Stable Departure-Patient Inst. Referrals: SELF,HA FERRELL (PCP/Family) Primary Care Physician Patient Instructions: Flu, Adult (DC), Viral Syndrome (DC) Add. Discharge Instructions: Tylenol or ibuprofen as needed for fever or body aches, drink plenty of fluids All discharge instructions reviewed with patient and/or family. Voiced understanding. Scripts Ondansetron (Ondansetron Odt) 4 Mg Tab.rapdis 4 MG PO Q6H PRN for NAUSEA/VOMITING, #20 TAB 0 Refills Prov: TAYE MARTIN DO 07/16/22 Work/School Note: Work Release Form Date Seen in the Emergency Department: Jul 16, 2022 Return to Work: Jul 18, 2022 Restrictions: Return-No Fever (24hrs), Return-No Vomiting(24hrs) TAYE MARTIN DO Jul 16, 2022 02:15
[2022-07-16 02:16] VITALS: BP 99/73
[2022-07-16] MEDS ORDERED: ONDA4TAB11 PO (02:16)
== END 2022-07-16 02:17 | disposition home or self-care (01) ==
LOC: EDUNIT# 01:56 → ER FS 02:01
DX: R50.9 Fever, unspecified (principal); R05.9 Cough, unspecified; R11.2 Nausea with vomiting, unspecified; Z28.310 Unvaccinated for COVID-19
CPT/HCPCS: 99283

== ENCOUNTER 2023-04-07 12:47 | Emergency (ER) | payer SELFPAY ==
[~2023-04-07] VITALS: Ht 170.2 cm; Wt 59.0 kg
--- NOTE | 2023-04-07 12:52 | ED GI ---
General Stated Complaint: VOMITING Source of Information: Patient Exam Limitations: No Limitations History of Present Illness Date Seen by Provider: Apr 07, 2023 Time Seen by Provider: 12:43 Initial Comments 27-year-old male presents via EMS for nausea vomiting and diarrhea since yesterday. He was seen in urgent care and told he likely had a "stomach bug." He is not given any medications. They were fairly reluctant to give medications due to his home medications which include digoxin. He has diffuse abdominal cramping without any focal tenderness. No fevers. He has had chills. Emesis is nonbloody nonbilious. Diarrhea is without blood. All other systems reviewed and negative except documented per HPI. Voice recognition software was used to help create this chart Allergies and Home Medications Allergies Coded Allergies: Pertussis Vaccines (Verified Allergy, Unknown, 03/14/20) azithromycin (Verified Allergy, Unknown, 03/14/20) Patient Home Medication List Home Medication List Reviewed: Yes Aspirin (Aspirin) 81 Mg Tab.chew, 81 MG PO DAILY, (Reported) Entered as Reported by: OZZY JONES on 03/15/20918 Benzonatate (Benzonatate) 100 Mg Capsule, 100 MG PO TID PRN for COUGH, (Reported) Entered as Reported by: JOSE D ALDRIDGE on 07/01/22 0635 Calcium Carbonate (Calcium) 600 Mg Tablet, 600 MG PO DAILY, (Reported) Entered as Reported by: BRANDEE LEE on 03/16/20 1155 Digoxin (Digoxin) 125 Mcg Tablet, 125 MCG PO DAILY, (Reported) Entered as Reported by: OZZY JONES on 03/15/20918 Lisinopril (Lisinopril) 5 Mg Tablet, 5 MG PO DAILY, (Reported) Entered as Reported by: OZZY JONES on 03/15/20918 Ondansetron (Ondansetron Odt) 4 Mg Tab.rapdis, 4 MG PO Q6H PRN for NAUSEA/VOMITING Prescribed by: TAYE MARTIN on 07/16/22 0216 Review of Systems Review of Systems Constitutional: see HPI Past Wibwexy-Eowzwg-Rqeauh Hx Patient Social History Tobacco Use?: No Use of E-Cig and/or Vaping dev: No Substance use?: No Alcohol Use?: No Immunizations Up To Date First/Initial COVID19 Vaccinat: unknown date Second COVID19 Vaccination Francisco: unknown date Past Medical History Surgery/Hospitalization HX: Congenital heart defect, open heart surgery repairs x3 Surgeries: Yes Abdominal, Open Heart Surgery, Tracheostomy Respiratory: No Cardiac: Yes (Congenital heart disease) Congenital Heart Disease Neurological: No Genitourinary: No Gastrointestinal: Yes (feeding tube when younger) Musculoskeletal: No Endocrine: No HEENT: No Cancer: No Psychosocial: Yes Anxiety Integumentary: No Blood Disorders: No Family Medical History Asthma, Heart Disease, CVA, Stroke Physical Exam Vital Signs Vital Signs - First Documented 04/07/23 12:48 Temp 36.6 Pulse 87 Resp 24 B/P (MAP) 112/77 (89) O2 Delivery Room Air Capillary Refill : Height/Weight/BMI Height: '" Weight: lbs. oz. kg; 19.00 BMI Method: General Appearance: WD/WN, no apparent distress HEENT: normal ENT inspection, pharynx normal Neck: non-tender, supple Respiratory: chest non-tender, lungs clear, normal breath sounds, no res piratory distress, no accessory muscle use Cardiovascular: no murmur, tachycardia Gastrointestinal: normal bowel sounds, non tender, soft Extremities: non-tender, normal inspection, normal capillary refill Neurologic/Psychiatric: alert, oriented x 3 Skin: normal color, warm/dry, other (Scars anterior chest wall from previous open heart surgery) Progress/Results/Core Measures Results/Orders Lab Results Laboratory Tests Test 04/07/23 12:52 Range/Units White Blood Count 19.0 H 4.3-11.0 10^3/uL Red Blood Count 5.77 H 4.30-5.52 10^6/uL Hemoglobin 17.6 13.3-17.7 g/dL Hematocrit 52 40-54 % Mean Corpuscular Volume 90 80-99 fL Mean Corpuscular Hemoglobin 31 25-34 pg Mean Corpuscular Hemoglobin Concent 34 32-36 g/dL Red Cell Distribution Width 13.3 10.0-14.5 % Platelet Count 190 130-400 10^3/uL Mean Platelet Volume 11.4 9.0-12.2 fL Immature Granulocyte % (Auto) 1 % Neutrophils (%) (Auto) 90 H 42-75 % Lymphocytes (%) (Auto) 3 L 12-44 % Monocytes (%) (Auto) 6 0-12 % Eosinophils (%) (Auto) 0 0-10 % Basophils (%) (Auto) 0 0-10 % Neutrophils # (Auto) 17.2 H 1.8-7.8 10^3/uL Lymphocytes # (Auto) 0.6 L 1.0-4.0 10^3/uL Monocytes # (Auto) 1.1 H 0.0-1.0 10^3/uL Eosinophils # (Auto) 0.0 0.0-0.3 10^3/uL Basophils # (Auto) 0.1 0.0-0.1 10^3/uL Immature Granulocyte # (Auto) 0.1 0.0-0.1 10^3/uL Neutrophils % (Manual) 93 % Lymphocytes % (Manual) 3 % Monocytes % (Manual) 4 % Sodium Level 138 135-145 MMOL/L Potassium Level 4.0 3.6-5.0 MMOL/L Chloride Level 101 98-107 MMOL/L Carbon Dioxide Level 19 L 21-32 MMOL/L Anion Gap 18 H 5-14 MMOL/L Blood Urea Nitrogen 10 7-18 MG/DL Creatinine 0.68 0.60-1.30 MG/DL Estimat Glomerular Filtration Rate 129 BUN/Creatinine Ratio 15 Glucose Level 118 H 70-105 MG/DL Calcium Level 9.9 8.5-10.1 MG/DL My Orders Orders - MARQUITA SANDHU DO Cbc With Automated Diff (04/07/23 12:50) Basic Metabolic Panel (04/07/23 12:50) Ns Iv 1000 Ml (Ns Iv 1000 Ml) (04/07/23 13:00) Ondansetron Injection (Ondansetron Inj (04/07/23 13:00) Manual Differential (04/07/23 12:52) Ondansetron Injection (Ondansetron Inj (04/07/23 12:58) Digoxin (04/07/23 12:52) Medications Given in ED Current Medications Medications Dose Ordered Sig/Christen Route Start Time Stop Time Status Last Admin Dose Admin Ondansetron HCl 8 mg ONCE ONCE IVP 04/07/23 13:00 04/07/23 13:01 DC 04/07/23 13:01 8 MG Vital Signs/I&O 04/07/23 12:48 Temp 36.6 Pulse 87 Resp 24 B/P (MAP) 112/77 (89) O2 Delivery Room Air Departure Communication (Admissions) Patient is hemodynamically stable. He is given IV fluids and his heart rate is now in the 70s. Blood pressures are stable. No further vomiting here in the emergency department. Electrolytes are normal. He does have a leukocytosis likely suspect from the stress of vomiting alone. There is no evidence for focal bacterial infection. We discharged home in stable condition with supportive care. Impression Primary Impression: Nausea vomiting and diarrhea Disposition: 01 HOME, SELF-CARE Condition: Stable Departure-Patient Inst. Referrals: SELFHA MD (PCP/Family) Primary Care Physician Patient Instructions: Nausea and Vomiting, Adult ED Add. Discharge Instructions: You likely have a GI bug. Increase your fluids at home by taking small sips of fluids every 15 minutes. Use Zofran by dissolving under your tongue as needed for nausea. This will keep you from vomiting completely but should help with your symptoms. Return to the emergency department for any severe concerns. Follow-up with your primary doctor for any nonemergent needs. Scripts Ondansetron (Ondansetron Odt) 8 Mg Tab.rapdis 8 MG SL Q6H PRN for NAUSEA/VOMITING for 3 Days, #12 TAB Prov: MARQUITA SANDHU DO 04/07/23 MARQUITA SANDHU DO Apr 07, 2023 12:52
[2023-04-07 12:59] LABS: BASOPHILS # (AUTO) 0.1 10^3/uL (0.0-0.1); BASOPHILS % (AUTO) 0 % (0-10); EOSINOPHILS % (AUTO) 0 % (0-10); HEMATOCRIT 52 % (40-54); HEMOGLOBIN 17.6 g/dL (13.3-17.7); LYMPHOCYTES # (AUTO) 0.6 10^3/uL (1.0-4.0); LYMPHOCYTES % (AUTO) 3 % (12-44); MEAN CORPUSCULAR HEMOGLOBIN 31 pg (25-34); MEAN CORPUSCULAR HGB CONC 34 g/dL (32-36); MEAN CORPUSCULAR VOLUME 90 fL (80-99); MEAN PLATELET VOLUME 11.4 fL (9.0-12.2); MONOCYTES # (AUTO) 1.1 10^3/uL (0.0-1.0); MONOCYTES % (AUTO) 6 % (0-12); NEUTROPHILS # (AUTO) 17.2 10^3/uL (1.8-7.8); NEUTROPHILS % (AUTO) 90 % (42-75); PLATELET COUNT 190 10^3/uL (130-400)
[2023-04-07] MEDS: ONDANSETRON INJECTION 4 MG/2 ML (SDV) ONE (13:00)
[2023-04-07] MEDS ORDERED: ONDANSETRON INJECTION 4 MG/2 ML (SDV) IVP ONE (13:00)
[2023-04-07] MEDS ORDERED: NS IV 1000 ML 1,000 ML IV SCH (13:00)
[2023-04-07 13:14] LABS: LYMPHOCYTES % (MANUAL) 3 %; MONOCYTES % (MANUAL) 4 %; NEUTROPHILS % (MANUAL) 93 %
[2023-04-07 13:19] LABS: CALCIUM 9.9 MG/DL (8.5-10.1); CREATININE SERUM 0.68 MG/DL (0.60-1.30)
[2023-04-07] MEDS ORDERED: ONDA8TAB13 SL (13:29)
[2023-04-07 13:36] VITALS: BP 119/71
[2023-04-08] MEDS ORDERED: FAMO-119 PO (17:02)
== END 2023-04-07 13:36 | disposition home or self-care (01) ==
LOC: EDUNIT# 12:47 → ER FS 12:48
DX: R11.2 Nausea with vomiting, unspecified (principal); R19.7 Diarrhea, unspecified; Z28.310 Unvaccinated for COVID-19
CPT/HCPCS: 36415; 80048; 80162; 85007; 85027

== ENCOUNTER 2023-04-07 20:03 | Emergency (ER) | payer SELFPAY ==
[~2023-04-07] VITALS: Ht 170 cm; Wt 60.0 kg
[~2023-04-07 20:03] MED LIST changes: +ONDA8TAB13 SL
--- NOTE | 2023-04-07 20:15 | ED GI ---
General Chief Complaint: Abdominal/GI Problems Stated Complaint: N/V Nursing Triage Note: Patient presented to the ER via EMS secondary to nausea and vomiting. Patient was seen earlier today for same complaint as well as at urgent care. Source of Information: Patient Exam Limitations: No Limitations History of Present Illness Date Seen by Provider: Apr 07, 2023 Time Seen by Provider: 20:05 Initial Comments 27-year-old male presents again via EMS for nausea vomiting and loose stools. He was seen in urgent care earlier today and then by myself a couple of hours ag o for similar concerns. He had full lab work-up at that time which was remarkable only for leukocytosis. His electrolytes and kidney function were normal. His vital signs were normal at that time. He was prescribed Zofran but he states he did not pick it up because he fell asleep. He denies any fevers but has had chills. All other systems reviewed and negative except documented per HPI. Voice recognition software was used to help create this chart Allergies and Home Medications Allergies Coded Allergies: Pertussis Vaccines (Verified Allergy, Unknown, 03/14/20) azithromycin (Verified Allergy, Unknown, 03/14/20) Patient Home Medication List Home Medication List Reviewed: Yes Aspirin (Aspirin) 81 Mg Tab.chew, 81 MG PO DAILY, (Reported) Entered as Reported by: OZZY JONES on 03/15/20918 Benzonatate (Benzonatate) 100 Mg Capsule, 100 MG PO TID PRN for COUGH, (Reported) Entered as Reported by: JOSE D ALDRIDGE on 07/01/22 0635 Calcium Carbonate (Calcium) 600 Mg Tablet, 600 MG PO DAILY, (Reported) Entered as Reported by: BRANDEE LEE on 03/16/20 1155 Digoxin (Digoxin) 125 Mcg Tablet, 125 MCG PO DAILY, (Reported) Entered as Reported by: OZZY JONES on 03/15/20918 Lisinopril (Lisinopril) 5 Mg Tablet, 5 MG PO DAILY, (Reported) Entered as Reported by: OZZY JONES on 03/15/20918 Ondansetron (Ondansetron Odt) 4 Mg Tab.rapdis, 4 MG PO Q6H PRN for NAUSEA/VOMITING Prescribed by: TAYE MARTIN on 07/16/22 0216 Ondansetron (Ondansetron Odt) 8 Mg Tab.rapdis, 8 MG SL Q6H PRN for NAUSEA/VOMITING Prescribed by: MARQUITA SANDHU MD on 04/07/23 4311 Review of Systems Review of Systems Constitutional: see HPI Past Qlvnjwz-Hcadnt-Fiozrt Hx Patient Social History Tobacco Use?: No Use of E-Cig and/or Vaping dev: No Substance use?: No Alcohol Use?: No Immunizations Up To Date First/Initial COVID19 Vaccinat: unknown date Second COVID19 Vaccination [place]: unknown date Past Medical History Surgery/Hospitalization HX: Congenital heart defect, open heart surgery repairs x3 Surgeries: Yes Abdominal, Open Heart Surgery, Tracheostomy Respiratory: No Cardiac: Yes (Congenital heart disease) Congenital Heart Disease Neurological: No Genitourinary: No Gastrointestinal: Yes (feeding tube when younger) Musculoskeletal: No Endocrine: No HEENT: No Cancer: No Psychosocial: Yes Anxiety Integumentary: No Blood Disorders: No Family Medical History Asthma, Heart Disease, CVA, Stroke Physical Exam Vital Signs Vital Signs - First Documented 04/07/23 20:07 Pulse 104 Resp 22 B/P (MAP) 115/ Pulse Ox 100 O2 Delivery Room Air Capillary Refill : Less Than 3 Seconds Height/Weight/BMI Height: '" Weight: lbs. oz. kg; 20.00 BMI Method: General Appearance: WD/WN, no apparent distress HEENT: normal ENT inspection Respiratory: chest non-tender, lungs clear, normal breath sounds, no respiratory distress Cardiovascular: regular rate, rhythm, no murmur Gastrointestinal: normal bowel sounds, non tender, soft Extremities: normal range of motion, non-tender, normal capillary refill Neurologic/Psychiatric: alert, oriented x 3 Skin: normal color, warm/dry Progress/Results/Core Measures Results/Orders My Orders Orders - MARQUITA SANDHU DO Rx-Ondansetron Po (Rx-Zofran Po) (04/07/23 21:00) Vital Signs/I&O 04/07/23 20:07 Pulse 104 Resp 22 B/P (MAP) 115/ Pulse Ox 100 O2 Delivery Room Air Departure Communication (Admissions) Pt is hemodynamically stable with normal vital signs. He had full lab workup at his last visit only showing leukocytosis that i believe is likely reactive. He did not picker tender zofran that was prescribed to him. He was given IV zofran by EMS prior to arrival. He has no new symptoms. No indication for further lab workup. He is given the remainder of IVF provided by EMS and discharged in stable condition. He is upset about being discharged, requesting to be transferred to a different hospital. I informed him there is no indication to be transferred to a different hospital. He has had again no recurrence of vomiting here and has tolerated small sips of fluids without difficulty. I did send him home with a take-home Zofran as he did not picker tender his prescriptions earlier with the pharmacy was open. He asked for the ER supervisors number which is provided for him as he would like to call and complain. Advised him he was within his rights and her elementary secretary has provided him with the number. Impression Primary Impression: Nausea vomiting and diarrhea Disposition: HOME, SELF-CARE Condition: Stable Departure-Patient Inst. Referrals: SELF,HA FERRELL (PCP/Family) Primary Care Physician Patient Instructions: Nausea and Vomiting, Adult ED Add. Discharge Instructions: As discussed, you are likely to feel bad for the next 48 hours. It is expected that you will continue to have vomiting. Please picker tender the zofran and take it as needed for nausea. Drink katrin sips of fluids regularly to stay hydrated. Return to the ER for any severe concerns. Follow up with your primary doctor for any non emergent needs. All discharge instructions reviewed with patient and/or family. Voiced underst anding. MARQUITA SANDHU DO Apr 07, 2023 20:15
[2023-04-07] MEDS ORDERED: RX-ONDANSETRON 4 MG ODT (ZOFRAN) PPK #4 PO ONE (21:00)
[2023-04-07 21:05] VITALS: BP 109/75
[2023-04-08] MEDS ORDERED: FAMO-119 PO (17:02)
== END 2023-04-07 21:07 | disposition home or self-care (01) ==
LOC: EDUNIT# 20:03 → ER FS 20:05
DX: R11.2 Nausea with vomiting, unspecified (principal); R19.7 Diarrhea, unspecified

== ENCOUNTER 2023-04-08 12:31 | Emergency (ER) | payer SELFPAY ==
[~2023-04-08] VITALS: Ht 170 cm; Wt 63.0 kg
[2023-04-08] MEDS ORDERED: NS IV 1000 ML 1,000 ML IV SCH (15:00)
[2023-04-08] MEDS ORDERED: KETOROLAC INJ 15 MG/ML VIAL IVP ONE (15:00)
[2023-04-08] MEDS ORDERED: ONDANSETRON INJECTION 4 MG/2 ML (SDV) IVP ONE (15:00)
--- NOTE | 2023-04-08 15:10 | ED Abdominal Pain ---
General Chief Complaint: General Problems/Pain Stated Complaint: SORE THROAT, N/V, Nursing Triage Note: pt states he has been vomiting and has a sore throat for 2 days. is losing his voice today. was seen in [place] yesterday. has taken zofran at home with no relief. Source of Information: Patient Exam Limitations: No Limitations History of Present Illness Date Seen by Provider: Apr 08, 2023 Time Seen by Provider: 11:15 Initial Comments 27-year-old male presents to the ER with reports of vomiting and abdominal pain for the last 3 days. He reports that the last 2 days he has been vomiting nonstop. Reports 2 episodes of diarrhea over the last 3 days. He reports that today he started having a hoarse voice. He is complaining of chest pain due to vomiting. He reports feeling hot and cold, and reports a mild cough. Complains of pain with swallowing. He denies headache and dysuria. Allergies and Home Medications Allergies Coded Allergies: Pertussis Vaccines (Verified Allergy, Unknown, 03/14/20) azithromycin (Verified Allergy, Unknown, 03/14/20) Patient Home Medication List Home Medication List Reviewed: Yes Aspirin (Aspirin) 81 Mg Tab.chew, 81 MG PO DAILY, (Reported) Entered as Reported by: OZZY JONES on 03/15/20 09 Benzonatate (Benzonatate) 100 Mg Capsule, 100 MG PO TID PRN for COUGH, (Reported) Entered as Reported by: JOSE D ALDRIDGE on 07/01/22 0635 Calcium Carbonate (Calcium) 600 Mg Tablet, 600 MG PO DAILY, (Reported) Entered as Reported by: BRANDEE LEE on 03/16/20 1155 Digoxin (Digoxin) 125 Mcg Tablet, 125 MCG PO DAILY, (Reported) Entered as Reported by: OZZY JONES on 03/15/20 0919 Famotidine (Pepcid) 20 Mg Tablet, 20 MG PO BID Prescribed by: Jackelyn Samuel on 04/08/23 170 Lisinopril (Lisinopril) 5 Mg Tablet, 5 MG PO DAILY, (Reported) Entered as Reported by: OZZY JONES on 03/15/20 09 Ondansetron (Ondansetron Odt) 4 Mg Tab.rapdis, 4 MG PO Q6H PRN for NAUSEA/VOMITING Prescribed by: TAYE MARTIN on 07/16/22 0216 Ondansetron (Ondansetron Odt) 8 Mg Tab.rapdis, 8 MG SL Q6H PRN for NAUSEA/VOMITING Prescribed by: MARQUITA SANDHU MD on 04/07/23 1329 Review of Systems Review of Systems Constitutional: see HPI Past Qrdpjpw-Xaghux-Hmpktd Hx Patient Social History Tobacco Use?: No Substance use?: No Alcohol Use?: No Immunizations Up To Date First/Initial COVID19 Vaccinat: unknown date Second COVID19 Vaccination [place]: unknown date Third COVID19 Vaccination Date: unknown date Past Medical History Surgery/Hospitalization HX: Congenital heart defect, open heart surgery repairs x3 Surgeries: Yes Abdominal, Open Heart Surgery, Tracheostomy Respiratory: No Cardiac: Yes (Congenital heart disease) Congenital Heart Disease Neurological: No Genitourinary: No Gastrointestinal: Yes (feeding tube when younger) Musculoskeletal: No Endocrine: No HEENT: No Cancer: No Psychosocial: Yes Anxiety Integumentary: No Blood Disorders: No Family Medical History Asthma, Heart Disease, CVA, Stroke Physical Exam Vital Signs Vital Signs - First Documented 04/08/23 13:19 Temp 37.2 Pulse 93 Resp 16 B/P (MAP) 109/67 (81) Pulse Ox 96 Capillary Refill : Height/Weight/BMI Height: '" Weight: lbs. oz. kg; 21.00 BMI Method: General Appearance: WD/WN, no apparent distress Neck: supple, normal inspection Respiratory: lungs clear, normal breath sounds, no respiratory distress, no accessory muscle use Cardiovascular: regular rate, rhythm Gastrointestinal: normal bowel sounds, soft, tenderness (Generalized tenderness worse in upper abdomen) Extremities: normal range of motion, normal inspection Neurologic/Psychiatric: alert, normal mood/affect Skin: normal color, warm/dry Progress/Results/Core Measures Results/Orders Lab Results Laboratory Tests Test 04/08/23 15:02 04/08/23 15:10 04/08/23 16:10 Range/Units Influenza Type A (RT-PCR) Not Detected Not Detecte Influenza Type B (RT-PCR) Not Detected Not Detecte SARS-CoV-2 RNA (RT-PCR) Not Detected Not Detecte Group A Streptococcus Screen Not Detected NotDetected White Blood Count 16.3 H 4.3-11.0 10^3/uL Red Blood Count 5.52 4.30-5.52 10^6/uL Hemoglobin 16.9 13.3-17.7 g/dL Hematocrit 50 40-54 % Mean Corpuscular Volume 91 80-99 fL Mean Corpuscular Hemoglobin 31 25-34 pg Mean Corpuscular Hemoglobin Concent 34 32-36 g/dL Red Cell Distribution Width 13.7 10.0-14.5 % Platelet Count 168 130-400 10^3/uL Mean Platelet Volume 11.2 9.0-12.2 fL Immature Granulocyte % (Auto) 1 % Neutrophils (%) (Auto) 88 H 42-75 % Lymphocytes (%) (Auto) 2 L 12-44 % Monocytes (%) (Auto) 9 0-12 % Eosinophils (%) (Auto) 0 0-10 % Basophils (%) (Auto) 0 0-10 % Neutrophils # (Auto) 14.4 H 1.8-7.8 10^3/uL Lymphocytes # (Auto) 0.3 L 1.0-4.0 10^3/uL Monocytes # (Auto) 1.4 H 0.0-1.0 10^3/uL Eosinophils # (Auto) 0.0 0.0-0.3 10^3/uL Basophils # (Auto) 0.0 0.0-0.1 10^3/uL Immature Granulocyte # (Auto) 0.1 0.0-0.1 10^3/uL Neutrophils % (Manual) 89 % Lymphocytes % (Manual) 2 % Monocytes % (Manual) 7 % Eosinophils % (Manual) 0 % Basophils % (Manual) 0 % Band Neutrophils 2 % Blood Morphology Comment NORMAL Sodium Level 140 135-145 MMOL/L Potassium Level 3.8 3.6-5.0 MMOL/L Chloride Level 105 98-107 MMOL/L Carbon Dioxide Level 20 L 21-32 MMOL/L Anion Gap 15 H 5-14 MMOL/L Blood Urea Nitrogen 14 7-18 MG/DL Creatinine 0.80 0.60-1.30 MG/DL Estimat Glomerular Filtration Rate 123 BUN/Creatinine Ratio 18 Glucose Level 123 H 70-105 MG/DL Calcium Level 9.8 8.5-10.1 MG/DL Corrected Calcium 8.5-10.1 MG/DL Magnesium Level 2.3 1.6-2.4 MG/DL Total Bilirubin 4.5 H 0.1-1.0 MG/DL Aspartate Amino Transf (AST/SGOT) 18 5-34 U/L Alanine Aminotransferase (ALT/SGPT) 16 0-55 U/L Alkaline Phosphatase 65 40-136 U/L Troponin I < 0.028 <0.028 NG/ML C-Reactive Protein High Sensitivity 5.12 H 0.00-0.50 MG/DL Total Protein 7.9 6.4-8.2 GM/DL Albumin 4.8 H 3.2-4.5 GM/DL Lipase < 4 L 8-78 U/L Urine Color MARY LOU H Urine Clarity CLEAR Urine pH 5.5 5-9 Urine Specific [place] >=1.030 1.016-1.022 Urine Protein 2+ H NEGATIVE Urine Glucose (UA) NEGATIVE NEGATIVE Urine Ketones 3+ H NEGATIVE Urine Nitrite NEGATIVE NEGATIVE Urine Bilirubin 3+ H NEGATIVE Urine Urobilinogen 2.0 < = 1.0 MG/DL Urine Leukocyte Esterase NEGATIVE NEGATIVE Urine RBC (Auto) NEGATIVE NEGATIVE Urine RBC NONE /HPF Urine WBC 0-2 /HPF Urine Squamous Epithelial Cells RARE /HPF Urine Crystals NONE /LPF Urine Bacteria FEW H /HPF Urine Casts NONE /LPF Urine Mucus MODERATE H /LPF Urine Culture Indicated NO Urine Opiates Screen NEGATIVE NEGATIVE Urine Oxycodone Screen NEGATIVE NEGATIVE Urine Methadone Screen NEGATIVE NEGATIVE Urine Propoxyphene Screen NEGATIVE NEGATIVE Urine Barbiturates Screen NEGATIVE NEGATIVE Ur Tricyclic Antidepressants Screen NEGATIVE NEGATIVE Urine Phencyclidine Screen NEGATIVE NEGATIVE Urine Amphetamines Screen NEGATIVE NEGATIVE Urine Methamphetamines Screen NEGATIVE NEGATIVE Urine Benzodiazepines Screen NEGATIVE NEGATIVE Urine Cocaine Screen NEGATIVE NEGATIVE Urine Cannabinoids Screen NEGATIVE NEGATIVE My Orders Orders - JACKELYN GERARDO [employer]ASE ENGINE[employer] Comprehensive Metabolic Panel (04/08/23 14:55) Lipase (04/08/23 14:55) Ed Iv/Invasive Line Start (04/08/23 14:55) Cbc With Automated Diff (04/08/23 14:55) Magnesium (04/08/23 14:55) Chest 1 View, Ap/Pa Only (04/08/23 14:55) Ekg Tracing (04/08/23 14:55) Ed Iv/Invasive Line Start (04/08/23 14:55) Troponin I [place] (04/08/23 14:55) Hs C Reactive Protein (04/08/23 14:55) Ns Iv 1000 Ml (Ns Iv 1000 Ml) (04/08/23 15:00) Ondansetron Injection (Ondansetron Inj (04/08/23 15:00) Ketorolac Injection (Ketorolac Injection (04/08/23 15:00) Covid 19 Inhouse Test (04/08/23 14:55) Influenza A And B By Pcr (04/08/23 14:55) Rapid Strep A Screen (04/08/23 14:55) Ua Culture If Indicated (04/08/23 15:17) Drug Screen Stat (Urine) (04/08/23 15:17) Pantoprazole Injection (Pantoprazole Inj (04/08/23 15:30) Manual Differential (04/08/23 15:10) Medications Given in ED Current Medications Medications Dose Ordered Sig/Christen Route Start Time Stop Time Status Last Admin Dose Admin Ketorolac Tromethamine 15 mg ONCE ONCE IVP 04/08/23 15:00 04/08/23 15:01 DC 04/08/23 15:11 15 MG Ondansetron HCl 4 mg ONCE ONCE IVP 04/08/23 15:00 04/08/23 15:01 DC 04/08/23 15:11 4 MG Pantoprazole 40 mg ONCE ONCE IV 04/08/23 15:30 04/08/23 15:31 DC 04/08/23 15:45 40 MG Vital Signs/I&O 04/08/23 04/08/23 13:19 17:07 Temp 37.2 37.2 Pulse 93 93 Resp 16 16 B/P (MAP) 109/67 (81) 109/67 Pulse Ox 96 96 Blood Pressure Mean: 81 Progress Progress Note : Progress Note Patient seen and evaluated, resting in recliner, no acute distress. Based on exam and symptoms, differential diagnosis includes but is not limited to viral gastroenteritis, COVID, flu, strep, pancreatitis, other intra-abdominal pathology. Work-up initiated including CBC, CMP, lipase, magnesium, troponin, coags, chest x-ray, EKG. IV fluids, Zofran, Toradol, Protonix ordered. 1659 Labs and chest x-ray reviewed. EKG reviewed, see below. CBC shows elevated WBC 16.3, this is decreased since yesterday. CMP shows slightly decreased CO2 20, slightly elevated anion gap 15, these are also improved compared to labs from yesterday. Total bilirubin elevated, it has been elevated in the past as well. Troponin negative. CRP 5.12. Lipase normal. Chest x-ray shows no acute cardiopulmonary process. Patient reports improvement in symptoms after medications and fluids. Results discussed with patient. Patient is comfortable with discharge at this time. I will discharge with prescription for Pepcid. Patient instructed to not take this at the same time as his digoxin. Discharge instructions and return precautions provided. Initial ECG Impression Date: Apr 08, 2023 Initial ECG Impression Time: 15:19 Initial ECG Rate: 95 Initial ECG Rhythm: Normal Sinus Initial ECG Intervals: QRS (129) Initial ECG Impression: Nonspecific Changes Initial ECG Comparisson: Unchanged Comment Right bundle branch block, present on previous EKG. Diagnostic Imaging Diagonstic Imaging: Xray Plain Films/CT/US/NM/MRI: chest Comments [facility], [place] NAME: AUDIE REINA [facility] REC#: [id number] PT STATUS: REG ER : 1995 PHYSICIAN: JACKELYN GERARDO APRN ADMIT DATE: 04/08/23/ER Signed Date of Exam:04/08/23 CHEST 1 VIEW, AP/PA ONLY CLINICAL INDICATION: Patient with vomiting and sore throat for 2 days. Patient losing his voice. EXAM: Chest x-ray PA view only. COMPARISON: Chest x-ray dated 07/08/2021. FINDINGS: Lungs/pleura: Lungs are clear. There is no pneumothorax. There is no pleural effusion. Mediastinum: Unremarkable. Pulmonary vasculature: Unremarkable. Heart: Stable configuration of the heart which is not enlarged. There are postop change to the chest noted with sternotomy wires. Bones/extrathoracic soft tissue: Unremarkable. IMPRESSION: Stable chest x-ray exam with no interval radiographic evidence of acute cardiopulmonary process. Dictated by: Dictated on workstation # [id number] Dict: 04/08/23 1540 Trans: 04/08/23 1642 [facility] [id number] Interpreted by: DOC DRISCOLL MD Electronically signed by: DOC DRISCOLL MD 04/08/23 164 Departure Impression Primary Impression: Gastroenteritis Additional Impression: Esophagitis Disposition: 01 HOME, SELF-CARE Condition: Stable Departure-Patient Inst. Decision time for Depature: 16:59 Referrals: HA CARY MD (PCP/Family) Primary Care Physician Patient Instructions: Viral Gastroenteritis, Adult (DC) Add. Discharge Instructions: Take Pepcid up to twice a day as needed for gastric reflux. Do not take Pepcid at the same time as your digoxin because it can increase the effects of your digoxin. Separate the medications by at least 3 hours. Continue taking your Zofran as prescribed. Return for any new, concerning, or worsening symptoms. All discharge instructions reviewed with patient and/or family. Voiced understanding. Scripts Famotidine (Pepcid) 20 Mg Tablet 20 MG PO BID, #20 TAB 0 Refills Prov: JACKELYN GERARDO APRN 04/08/23 Copy Copies To 1: HA CARY MD, BRITTANY R APRN Apr 08, 2023 15:10
[2023-04-08 15:17] LABS: BASOPHILS % (AUTO) 0 % (0-10); EOSINOPHILS % (AUTO) 0 % (0-10); HEMATOCRIT 50 % (40-54); HEMOGLOBIN 16.9 g/dL (13.3-17.7); LYMPHOCYTES # (AUTO) 0.3 10^3/uL (1.0-4.0); LYMPHOCYTES % (AUTO) 2 % (12-44); MEAN CORPUSCULAR HEMOGLOBIN 31 pg (25-34); MEAN CORPUSCULAR HGB CONC 34 g/dL (32-36); MEAN CORPUSCULAR VOLUME 91 fL (80-99); MEAN PLATELET VOLUME 11.2 fL (9.0-12.2); MONOCYTES # (AUTO) 1.4 10^3/uL (0.0-1.0); MONOCYTES % (AUTO) 9 % (0-12); NEUTROPHILS # (AUTO) 14.4 10^3/uL (1.8-7.8); NEUTROPHILS % (AUTO) 88 % (42-75); PLATELET COUNT 168 10^3/uL (130-400); WHITE BLOOD COUNT 16.3 10^3/uL (4.3-11.0)
[2023-04-08] MEDS ORDERED: PANTOPRAZOLE INJECTION 40 MG VIAL IV ONE (15:30)
[2023-04-08 15:34] LABS: ALBUMIN 4.8 GM/DL (3.2-4.5)
[2023-04-08 15:35] LABS: CHLORIDE 105 MMOL/L (98-107); POTASSIUM 3.8 MMOL/L (3.6-5.0); SODIUM 140 MMOL/L (135-145)
[2023-04-08 15:36] LABS: CALCIUM 9.8 MG/DL (8.5-10.1)
[2023-04-08 15:37] LABS: GLUCOSE 123 MG/DL (70-105); TOTAL PROTEIN 7.9 GM/DL (6.4-8.2)
[2023-04-08 15:38] LABS: CARBON DIOXIDE 20 MMOL/L (21-32)
[2023-04-08 15:39] LABS: BILIRUBIN,TOTAL 4.5 MG/DL (0.1-1.0)
[2023-04-08 15:40] LABS: ALKALINE PHOSPHATASE 65 U/L (40-136)
[2023-04-08 15:41] LABS: GFR ESTIMATED 123
[2023-04-08 15:42] LABS: BUN/CREATININE RATIO 18
[2023-04-08 15:43] LABS: ALANINE AMINOTRANSFERASE 16 U/L (0-55); BAND NEUTROPHILS 2 %; BASOPHILS % (MANUAL) 0 %; EOSINOPHILS % (MANUAL) 0 %; LYMPHOCYTES % (MANUAL) 2 %; MAGNESIUM 2.3 MG/DL (1.6-2.4); MONOCYTES % (MANUAL) 7 %; NEUTROPHILS % (MANUAL) 89 %; RBC MORPH NORMAL
[2023-04-08 15:45] LABS: LIPASE < 4 U/L (8-78)
--- NOTE | 2023-04-08 15:45 | Diagnostic Imaging Report ---
CLINICAL INDICATION: Patient with vomiting and sore throat for 2 days. Patient losing his voice. EXAM: Chest x-ray PA view only. COMPARISON: Chest x-ray dated 07/08/2021. FINDINGS: Lungs/pleura: Lungs are clear. There is no pneumothorax. There is no pleural effusion. Mediastinum: Unremarkable. Pulmonary vasculature: Unremarkable. Heart: Stable configuration of the heart which is not enlarged. There are postop change to the chest noted with sternotomy wires. Bones/extrathoracic soft tissue: Unremarkable. IMPRESSION: Stable chest x-ray exam with no interval radiographic evidence of acute cardiopulmonary process. Dictated by: Dictated on workstation # [id number]
[2023-04-08 16:34] LABS: AMPHETAMINE SCREEN, URINE NEGATIVE (NEGATIVE); BARBITURATE SCREEN URINE NEGATIVE (NEGATIVE); BENZODIAZEPINES SCREEN URINE NEGATIVE (NEGATIVE); CANNABINOID SCREEN, URINE NEGATIVE (NEGATIVE); CLARITY,URINE CLEAR; COCAINE SCREEN URINE NEGATIVE (NEGATIVE); COLOR,URINE AMBER; METHADONE STAT NEGATIVE (NEGATIVE); OPIATE SCREEN URINE NEGATIVE (NEGATIVE); OXYCODONE STAT NEGATIVE (NEGATIVE); PH,URINE 5.5 (5-9); PROPOXYPHENE STAT NEGATIVE (NEGATIVE); TRICYCLIC ANTIDEPRESSANTS SCRE NEGATIVE (NEGATIVE)
[2023-04-08 16:35] LABS: BILIRUBIN,URINE 3+ (NEGATIVE); GLUCOSE, URINE (UA) NEGATIVE (NEGATIVE); KETONES,URINE 3+ (NEGATIVE); LEUKOCYTE ESTERASE ,URINE NEGATIVE (NEGATIVE); NITRITE,URINE NEGATIVE (NEGATIVE); PROTEIN,URINE 2+ (NEGATIVE); WBC,URINE 0-2 /HPF
[2023-04-08 16:36] LABS: BACTERIA,URINE FEW /HPF; SQUAMOUS EPITHELIAL CELL,UR RARE /HPF
[2023-04-08] MEDS ORDERED: FAMO-119 PO (17:02)
[2023-04-08 17:07] VITALS: BP 109/67
== END 2023-04-08 17:08 | disposition home or self-care (01) ==
LOC: EDUNIT# 12:31 → ER 12:35
DX: K52.9 Noninfective gastroenteritis and colitis, unspecified (principal); K20.90 Esophagitis, unspecified without bleeding; Z20.822 Contact with and (suspected) exposure to COVID-19
CPT/HCPCS: 36415; 71045; 80053; 80306; 81000; 83690; 83735; 84484; 85007; 85027; 86141; 87430; 87636; 93005